=== PATIENT | male | born 1950 | race Two or more races ===

== ENCOUNTER → 2019-05-06 | Outpatient (CLI) | payer MEDICAID, MEDICARE ==
[~2019-05-06] MED LIST: ASPI81TA45 PO; ATOR-2 PO; CLOP75TA PO; HYDR-3342 PO; LISI-170 PO
== END | disposition home or self-care (01) ==
LOC: CVU 08:40
PROVIDERS: ATTEND Internal Medicine Cardiovascular Disease
DX: I65.23 Occlusion and stenosis of bilateral carotid arteries (principal); I10 Essential (primary) hypertension; E78.5 Hyperlipidemia, unspecified; Z87.891 Personal history of nicotine dependence
CPT/HCPCS: 93880